=== PATIENT | male | born 1980 | race African-American/Black ===

== ENCOUNTER 2019-02-15 22:50 | Emergency (ER) | payer MEDICAID ==
[~2019-02-15] VITALS: Ht 182.9 cm; Wt 131.5 kg
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
--- NOTE | 2019-02-15 23:05 | NUR ---
ED Nurse Note: pt states "I drank some nyquil to help with the pain"
--- NOTE | 2019-02-15 23:10 | NUR ---
ED Nurse Note: xray at bedside
--- NOTE | 2019-02-15 23:14 | NUR ---
ED Nurse Note: xray complete
--- NOTE | 2019-02-16 00:37 | Diagnostic Imaging Report ---
Indication: left ankle pain Comparison: None Findings: 3 views of the left ankle obtained. Soft tissues are unremarkable. No acute fracture, malalignment, periostitis, or osteochondral defects are identified. There is a rim calcified intramedullary focus in the distal tibia. This could be an enchondroma or bone infarct. Impression: No acute injury. Incidental enchondroma versus bone infarct in the distal tibia
[2019-02-16 01:00] VITALS: BP 127/83
[2019-02-16] MEDS ORDERED: LIDOCAINE700 M1 TP (01:25)
[2019-02-16] MEDS ORDERED: ACETAMINOPHEN650 M3 ORAL (01:25)
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
--- NOTE | 2019-02-16 03:40 | NUR ---
[facility] DOWNTIME: For 02/16/2019 From 0200 to 0600, the following electronic documentation will be located in the patient handwritten chart, Following patient discharge, paper documentation will be scanned into [facility] with the remainder of the paper chart. Nursing Documentation Physician orders Medication Administration Records Medication Reconciliation Respiratory Documentation Dietary Documentation Case Management Documentation Affirmative Action Specialist Documentation
--- NOTE | 2019-02-16 11:10 | Diagnostic Imaging Report ---
Indication: Foot pain Comparison: None Findings: 3 views of the left foot were obtained. No acute fractures, malalignment, erosions or periostitis are identified. There is a rim calcified intramedullary lesion in the distal tibia seen on only one view nonspecific. There is mild soft tissue swelling. Impression: No acute injury. Incidental nonspecific distal tibial intramedullary lucent lesion not adequately evaluated on this exam. [facility] has communicated the preliminary results to the Emergency Department. Their findings are largely concordant with this report.
== END 2019-02-16 03:40 | disposition home or self-care (01) ==
LOC: EMR 23:23
DX: S93.602A Unspecified sprain of left foot, initial encounter (principal); Y04.0XXA Assault by unarmed brawl or fight, initial encounter; Y92.9 Unspecified place or not applicable; Z88.6 Allergy status to analgesic agent
CPT/HCPCS: 99283

== ENCOUNTER 2019-03-03 23:25 | Emergency (ER) | payer MEDICAID ==
[~2019-03-03] VITALS: Ht 182.9 cm; Wt 131.5 kg
[~2019-03-03 23:25] MED LIST: ACETAMINOPHEN650 M3 ORAL; LIDOCAINE700 M1 TP
--- NOTE | 2019-03-03 23:30 | NUR ---
ED Nurse Note: Pt came from home c.o LT inner thigh abscess. Pt stated he noticed the abscess, popped it and puss came out. Now abscess has grown and is painful. 04/20
[2019-03-03 23:35] VITALS: BP 106/70
[2019-03-04] MEDS ORDERED: BACTRIM DS TAB1 EAC1 ORAL
[2019-03-04] MEDS ORDERED: CEPHALEXIN500 M1 ORAL
--- NOTE | 2019-03-04 | Emergency Room Report ---
History of Present Illness General Chief Complaint: Skin Rash/Abscess Source: Patient Present Illness HPI 38-year-old male presents with left thigh pain, patient states that yesterday he expressed pus from a abscess, no fever no chills, he endorses left thigh pain that is painful sharp in nature aggravated with movement alleviated with rest, severity is moderate Allergies: Coded Allergies: ASPIRIN (Verified Allergy, Unknown, 02/15/19) Patient History Past Medical History: see triage record Social History: Reports: drug use - marijuana Reviewed Nursing Documentation: PMH: Agreed; PSxH: Agreed Nursing Documentation-PMH Past Medical History: No Stated History Review of Systems All Other Systems: negative except mentioned in HPI Physical Exam Vital Signs Date Time Temp Pulse Resp B/P (MAP) Pulse Ox O2 Delivery O2 Flow Rate FiO2 03/03/19 23:33 98.2 93 17 106/70 (82) 95 Room Air Sp02 EP Interpretation: reviewed, normal General Appearance: well appearing, no apparent distress, alert Head: normocephalic, atraumatic Eyes: bilateral eye PERRL, bilateral eye EOMI ENT: uvula midline, moist mucus membranes Neck: supple, thyroid normal, supple/symm/no masses Respiratory: lungs clear, no respiratory distress, no retraction, no accessory muscle use Cardiovascular #1: normal peripheral pulses, regular rate, rhythm, no edema, no gallop, no murmur Gastrointestinal: non tender, soft, no guarding, no rebound Musculoskeletal: normal inspection Neurologic: alert, oriented x3 Psychiatric: mood/affect normal Skin: warm/dry, other - Left thigh punctate lesion in the middle no pus is expressed, no fluctuance felt, tenderness to palpation, no erythema Medical Decision Making Diagnostic Impression: Primary Impression: Cellulitis Qualified Codes: L03.116 - Cellulitis of left lower limb ER Course Possible developing cellulitis versus abscess in the left groin nothing to express at this point, no indications for acute incision and drainage, will provide patient with a short course of antibiotics, disposition home with return precautions Last Vital Signs Date Time Temp Pulse Resp B/P (MAP) Pulse Ox O2 Delivery O2 Flow Rate FiO2 03/03/19 23:33 98.2 93 17 106/70 (82) 95 Room Air Disposition: HOME, SELF-CARE Condition: Stable Scripts Trimethoprim/Sulfamethoxazole 160/800* (BACTRIM DS TABLET*) 1 Each Tablet 1 TAB ORAL Q12H for 10 Days, #20 TAB 0 Refills Prov: Juan Luis Hearn MD 03/04/19 Cephalexin* (CEPHALEXIN*) 500 Mg Tablet 500 MG ORAL EVERY 6 HOURS for 10 Days, #40 CAP Prov: Juan Luis Hearn MD 03/04/19 Referrals: [facility] Patient Instructions: Cellulitis, [id number] Additional Instructions: The patient was provided with discharge instructions, notified to follow-up with a primary care doctor and or specialist in the next 24-48 hours, and to return to the ED if they have worsening of their symptoms. Please note that this report is being documented using [employer] technology. This can lead to erroneous entry secondary to incorrect interpretation by the dictating instrument. Juan Luis Hearn MD Mar 04, 2019 00:00
[2019-03-04 00:15] VITALS: BP 120/72
--- NOTE | 2019-03-04 00:15 | NUR ---
ER DISCHARGE NOTE: Patient is cleared to be discharged per ERMD, pt is aox4, on room air, with stable vital signs. pt was given dc and prescription instructions, pt was able to verbalize understanding, pt id band removed without complications. pt is able to ambulate with steady gait. pt took all belongings.
== END 2019-03-04 00:15 | disposition home or self-care (01) ==
LOC: EDSEX 23:25 → EMR 03-04 00:10
DX: L03.116 Cellulitis of left lower limb (principal); Z79.82 Long term (current) use of aspirin
CPT/HCPCS: 99282